=== PATIENT | female | born 1995 | race Hispanic/Latino ===

== ENCOUNTER 2017-12-18 12:30 | Emergency (ER) | payer MEDICAID ==
[2017-12-18 13:11] LABS: HCG,QUAL RESULT POSITIVE (NEGATIVE)
[2017-12-18 13:12] LABS: APPEARANCE,URINE Cloudy (CLEAR); BILIRUBIN,URINE Negative (NEGATIVE); COLOR,URINE Dark Yellow (YELLOW); GLUCOSE, URINE (UA) Negative (NEGATIVE); KETONES,URINE Negative (NEGATIVE); LEUKOCYTE ESTERASE ,URINE Trace (NEGATIVE); NITRATE,URINE Negative (NEGATIVE); OCCULT BLOOD,URINE Negative (NEGATIVE); PROTEIN,URINE Negative (NEGATIVE); UROBILINOGEN,URINE 0.2 mg/dL (0.2-1.0)
[2017-12-18] MEDS ORDERED: ONDANSETRON ODT 4 MG TAB ONE (13:13)
[2017-12-18 13:28] LABS: RBC,URINE 0-1 /HPF (0-1)
[2017-12-18 13:29] LABS: BACTERIA,URINE Few /HPF (None Seen); MUCUS,URINE Few LPF (None Seen); SQUAMOUS EPITHELIAL CELL,UR Moderate /LPF (0-2)
== END 2017-12-18 13:47 | disposition home or self-care (01) ==
LOC: EDH 12:30
DX: O26.891 Other specified pregnancy related conditions, first trimester (principal); O21.9 Vomiting of pregnancy, unspecified; Z3A.08 8 weeks gestation of pregnancy
CPT/HCPCS: 81001; 81025

== ENCOUNTER 2018-01-10 17:55 | Emergency (ER) | payer MEDICAID ==
[2018-01-10] MEDS ORDERED: DIPHENHYDRAMINE HCL 25 MG CAPSULE ONE (18:31)
[2018-01-10] MEDS ORDERED: FAMOTIDINE 20MG TAB 20 MG TAB ONE (18:32)
[2018-01-10] MEDS ORDERED: METHYLPREDNISOLONE SOD SUCC 125MG/2ML VIAL ONE (19:23)
== END 2018-01-10 19:56 | disposition home or self-care (01) ==
LOC: EDH 17:55
DX: O26.891 Other specified pregnancy related conditions, first trimester (principal); L50.9 Urticaria, unspecified; Z3A.12 12 weeks gestation of pregnancy
CPT/HCPCS: 96372; 99283; J2930; Q0163

== ENCOUNTER 2018-04-04 18:15 | Inpatient (IN) | payer MEDICAID ==
[~2018-04-04] VITALS: Ht 152.4 cm; Wt 73.9 kg
[2018-04-04 18:49] LABS: APPEARANCE,URINE Turbid (CLEAR); BILIRUBIN,URINE Negative (NEGATIVE); COLOR,URINE Yellow (YELLOW); GLUCOSE, URINE (UA) Negative (NEGATIVE); KETONES,URINE Negative (NEGATIVE); LEUKOCYTE ESTERASE ,URINE Trace (NEGATIVE); NITRATE,URINE Negative (NEGATIVE); OCCULT BLOOD,URINE Negative (NEGATIVE); PROTEIN,URINE Negative (NEGATIVE)
[2018-04-04 18:59] LABS: AMORPHOUS SEDIMENT,UR Moderate /LPF (None Seen); BACTERIA,URINE Few /HPF (None Seen); MUCUS,URINE Few LPF (None Seen); RBC,URINE None Seen /HPF (0-1); SQUAMOUS EPITHELIAL CELL,UR 0-2 /HPF (0-2); WBC,URINE 0-1 /HPF (0-1)
[2018-04-04 19:26] LABS: AMPHET/METH SCREEN,URINE NEGATIVE (NEGATIVE); BARBITURATE SCREEN, URINE NEGATIVE (NEGATIVE); BENZODIAZEPINES SCREEN,URINE NEGATIVE (NEGATIVE); CANNABINOID SCREEN,URINE NEGATIVE (NEGATIVE); COCAINE SCREEN,URINE NEGATIVE (NEGATIVE); OPIATE SCREEN,URINE NEGATIVE (NEGATIVE); PHENCYCLIDINE SCREEN,URINE NEGATIVE (NEGATIVE)
[2018-04-04] MEDS ORDERED: LACTATED RINGERS 1000ML 1,000 ML IV PRN (19:43)
[2018-04-04] MEDS: LACTATED RINGERS 1000ML 1,000 ML IV SCH ×2 (19:53→23:58)
[2018-04-04] MEDS ORDERED: PROMETHAZINE HCL 25 MG/ML 1ML AMPULE IM ONE (19:59)
[2018-04-04] MEDS ORDERED: MEPERIDINE-PF 50 MG/ML SYG ONE (20:00)
[2018-04-04] MEDS: TAMSULOSIN HCL 0.4 MG CAP.ER.24H PO SCH (20:44)
[2018-04-04] MEDS: PROMETHAZINE HCL 25 MG/ML 1ML AMPULE IM PRN (23:57)
[2018-04-04] MEDS: MEPERIDINE-PF 50 MG/ML SYG IVP PRN (23:58)
[2018-04-05] MEDS: MEPERIDINE-PF 50 MG/ML SYG IVP PRN ×3 (04:12→20:15)
[2018-04-05] MEDS: PROMETHAZINE HCL 25 MG/ML 1ML AMPULE IM PRN ×4 (04:13→20:15)
[2018-04-05] MEDS: LACTATED RINGERS 1000ML 1,000 ML IV SCH ×2 (06:11→12:45)
[2018-04-05] MEDS: TAMSULOSIN HCL 0.4 MG CAP.ER.24H PO SCH (08:58)
[2018-04-05 10:12] LABS: CREATININE 0.8 mg/dL (0.5-1.5); POTASSIUM 3.8 mmol/L (3.5-5.1)
[2018-04-05 10:19] LABS: ALBUMIN 2.5 g/dL (3.5-5.0); BILIRUBIN,TOTAL 0.4 mg/dL (0.2-1.0); TOTAL PROTEIN, SERUM 6.3 g/dL (6.0-8.3)
[2018-04-05 18:05] LABS: BASOPHILS % (AUTO) 0.4 % (0.0-5.0); EOSINOPHILS % (AUTO) 0.2 % (0.0-8.0); HEMATOCRIT 25.5 % (36-48); MEAN CORPUSCULAR HEMOGLOBIN 31.8 pg (27.0-33.0); MEAN CORPUSCULAR HGB CONC 35.4 g/dL (32.0-36.0); MEAN CORPUSCULAR VOLUME 89.9 fL (80-100); MONOCYTES % (AUTO) 7.9 % (3.0-13.0); NEUTROPHILS % (AUTO) 73.5 % (40.0-77.0); PLATELET COUNT (AUTO) 230 K/uL (130-400); RED BLOOD CELL COUNT(AUTO) 2.83 MIL/uL (4.00-5.50); RED CELL DISTRIBUTION WIDTH 13.6 % (11.0-15.5); WHITE BLOOD COUNT (AUTO) 9.7 K/uL (4.8-10.8)
[2018-04-05] MEDS ORDERED: AMPICILLIN 2 GM IV ONE (21:27)
[2018-04-05] MEDS ORDERED: [UNRECOGNIZED DRUG - OTHER] IV ONE (21:27)
[2018-04-06] MEDS: TAMSULOSIN HCL 0.4 MG CAP.ER.24H PO SCH (09:05)
[2018-04-06] MEDS: LACTATED RINGERS 1000ML 1,000 ML IV SCH ×3 (09:05→21:31)
[2018-04-06 09:40] VITALS: BP 109/60
[2018-04-06] MEDS: PROMETHAZINE HCL 25 MG/ML 1ML AMPULE IM PRN (10:08)
[2018-04-06] MEDS: MEPERIDINE-PF 50 MG/ML SYG IVP PRN (10:10)
[2018-04-06 11:29] VITALS: BP 99/65
[2018-04-06 15:27] VITALS: BP 104/53
[2018-04-06] MEDS: ACETAMINOPHEN-CODEINE 300/30MG TAB PO PRN ×2 (15:31→21:30)
[2018-04-06 19:28] VITALS: BP 96/57
[2018-04-06 23:13] VITALS: BP 92/52
[2018-04-07 03:44] VITALS: BP 89/49
[2018-04-07] MEDS: ACETAMINOPHEN-CODEINE 300/30MG TAB PO PRN (05:14)
[2018-04-07 07:24] VITALS: BP 96/48
[2018-04-07] MEDS: LACTATED RINGERS 1000ML 1,000 ML IV SCH (08:12)
[2018-04-07] MEDS: TAMSULOSIN HCL 0.4 MG CAP.ER.24H PO SCH (08:38)
[2018-04-07 11:30] VITALS: BP 106/65
[2018-04-07 15:54] VITALS: BP 107/54
== END 2018-04-07 17:45 | disposition home or self-care (01) | DRG 566 ==
LOC: EDH 18:15 → LDH 18:16 → OBSVTOIN 04-05 12:17 → WSH 04-06 09:40
DX: O99.89 Other specified diseases and conditions complicating pregnancy, childbirth and the puerperium (principal); N13.2 Hydronephrosis with renal and ureteral calculous obstruction; Z3A.24 24 weeks gestation of pregnancy
CPT/HCPCS: 36415; 76770; 80053; 80305; 81001; 85025; 96360; 96361; G0378; J0290; J2175; J2550; J7120

== ENCOUNTER 2018-08-07 22:46 | Emergency (ER) | payer MEDICAID ==
[~2018-08-07 22:46] MED LIST: FERR-82 PO; PREN1TAB89 PO
[2018-08-07 23:10] LABS: HCG,QUAL RESULT NEGATIVE (NEGATIVE)
[2018-08-07 23:13] LABS: AMPHET/METH SCREEN,URINE NEGATIVE (NEGATIVE); BARBITURATE SCREEN, URINE NEGATIVE (NEGATIVE); BENZODIAZEPINES SCREEN,URINE NEGATIVE (NEGATIVE); CANNABINOID SCREEN,URINE NEGATIVE (NEGATIVE); COCAINE SCREEN,URINE NEGATIVE (NEGATIVE); OPIATE SCREEN,URINE POSITIVE (NEGATIVE); PHENCYCLIDINE SCREEN,URINE NEGATIVE (NEGATIVE)
[2018-08-07] MEDS ORDERED: METOCLOPRAMIDE 10 MG/2 ML VIAL ONE (23:20)
[2018-08-07] MEDS ORDERED: DiphenhydrAMINE HCL 50 MG/ML VIAL ONE (23:21)
[2018-08-07] MEDS ORDERED: KETOROLAC TROMETHAMINE 30MG/ML ONE (23:21)
[2018-08-07] MEDS ORDERED: ONDANSETRON HCL 4 MG/2 ML VIAL ONE (23:21)
[2018-08-07] MEDS ORDERED: SODIUM CHLORIDE 0.9% 1000ML 1,000 ML IV ONE (23:21)
[2018-08-07 23:38] LABS: BASOPHILS % (AUTO) 1.3 % (0.0-5.0); HEMATOCRIT 37.3 % (36-48); MEAN CORPUSCULAR HEMOGLOBIN 29.5 pg (27.0-33.0); MEAN CORPUSCULAR HGB CONC 33.6 g/dL (32.0-36.0); MEAN CORPUSCULAR VOLUME 88.1 fL (80-100); MONOCYTES % (AUTO) 8.3 % (3.0-13.0); NEUTROPHILS % (AUTO) 46.4 % (40.0-77.0); PLATELET COUNT (AUTO) 399 K/uL (130-400); RED BLOOD CELL COUNT(AUTO) 4.24 MIL/uL (4.00-5.50); RED CELL DISTRIBUTION WIDTH 14.2 % (11.0-15.5); WHITE BLOOD COUNT (AUTO) 8.4 K/uL (4.8-10.8)
[2018-08-07 23:42] LABS: POTASSIUM 3.6 mmol/L (3.5-5.1)
[2018-08-07 23:46] LABS: ALBUMIN 3.4 g/dL (3.5-5.0); BILIRUBIN,TOTAL 0.2 mg/dL (0.2-1.0)
[2018-08-08] MEDS ORDERED: TAMSULOSIN HCL 0.4 MG CAP.ER.24H ONE (01:36)
== END 2018-08-08 01:48 | disposition home or self-care (01) ==
LOC: EDH 22:46
DX: N13.2 Hydronephrosis with renal and ureteral calculous obstruction (principal)
CPT/HCPCS: 36415; 74176; 80053; 80305; 81025; 83690; 85025; 96361; 96374; 96375; 99285; J1200; J1885; J2405; J2765; J7030

== ENCOUNTER 2018-08-15 09:57 | Inpatient (IN) | payer MEDICAID, OTHER ==
[~2018-08-15] VITALS: Ht 152.4 cm; Wt 77.6 kg
[2018-08-15] MEDS ORDERED: KETOROLAC TROMETHAMINE 30MG/ML ONE (10:23)
[2018-08-15] MEDS ORDERED: ONDANSETRON HCL 4 MG/2 ML VIAL ONE (10:23)
[2018-08-15] MEDS ORDERED: MORPHINE SULFATE 4 MG/1ML SYG ONE ×2 (10:23→11:41)
[2018-08-15] MEDS ORDERED: SODIUM CHLORIDE 0.9% 1000ML 1,000 ML IV ONE ×2 (10:23→12:09)
[2018-08-15 10:55] LABS: BASOPHILS % (AUTO) 0.5 % (0.0-5.0); EOSINOPHILS % (AUTO) 1.1 % (0.0-8.0); HEMATOCRIT 38.6 % (36-48); MEAN CORPUSCULAR HEMOGLOBIN 29.5 pg (27.0-33.0); MEAN CORPUSCULAR HGB CONC 33.4 g/dL (32.0-36.0); MEAN CORPUSCULAR VOLUME 88.4 fL (80-100); MONOCYTES % (AUTO) 8.3 % (3.0-13.0); NEUTROPHILS % (AUTO) 55.1 % (40.0-77.0); PLATELET COUNT (AUTO) 289 K/uL (130-400); RED BLOOD CELL COUNT(AUTO) 4.36 MIL/uL (4.00-5.50); RED CELL DISTRIBUTION WIDTH 14.3 % (11.0-15.5); WHITE BLOOD COUNT (AUTO) 6.4 K/uL (4.8-10.8)
[2018-08-15 11:08] LABS: CREATININE 0.9 mg/dL (0.5-1.5); POTASSIUM 3.2 mmol/L (3.5-5.1)
[2018-08-15 11:13] LABS: ALBUMIN 3.8 g/dL (3.5-5.0); BILIRUBIN,TOTAL 0.5 mg/dL (0.2-1.0); TOTAL PROTEIN, SERUM 8.3 g/dL (6.0-8.3)
[2018-08-15 11:29] LABS: APPEARANCE,URINE Clear (CLEAR); BILIRUBIN,URINE Negative (NEGATIVE); COLOR,URINE Yellow (YELLOW); GLUCOSE, URINE (UA) Negative (NEGATIVE); KETONES,URINE 15 mg/dL (NEGATIVE); LEUKOCYTE ESTERASE ,URINE Small (NEGATIVE); NITRATE,URINE Negative (NEGATIVE); OCCULT BLOOD,URINE Negative (NEGATIVE); PH,URINE >=9.0 (5.0-8.0); PROTEIN,URINE Negative (NEGATIVE)
[2018-08-15 11:48] LABS: BACTERIA,URINE Rare /HPF (None Seen); MUCUS,URINE Few LPF (None Seen); RBC,URINE 0-1 /HPF (0-1); SQUAMOUS EPITHELIAL CELL,UR Few /HPF (0-2)
[2018-08-15] MEDS ORDERED: TAMSULOSIN HCL 0.4 MG CAP.ER.24H ONE (13:32)
[2018-08-15] MEDS ORDERED: ONDANSETRON HCL 4 MG/2 ML VIAL IVP PRN (13:45)
[2018-08-15] MEDS ORDERED: POTASSIUM CHLORIDE 10% ELIXIR 20 MEQ/15 ML UDCUP PO PRN (14:00)
[2018-08-15 15:16] VITALS: BP 110/63
[2018-08-15] MEDS: POTASSIUM CHLORIDE 20 MEQ ERTAB PO PRN ×2 (15:42→18:34)
[2018-08-15] MEDS: MORPHINE SULFATE 2 MG/ML 1ML SYG IV PRN ×2 (17:15→17:16)
[2018-08-15 19:05] VITALS: BP 100/55
[2018-08-15] MEDS: DEXTROSE 5%-LACTATED RINGERS 1,000 ML IV SCH (20:58)
[2018-08-15] MEDS ORDERED: KETOROLAC TROMETHAMINE 30MG/ML IV PRN (21:00)
[2018-08-15 23:05] VITALS: BP 98/54
[2018-08-16 03:15] VITALS: BP 96/54
[2018-08-16] MEDS: DEXTROSE 5%-LACTATED RINGERS 1,000 ML IV SCH (04:23)
[2018-08-16 07:59] VITALS: BP 102/60
[2018-08-16] MEDS ORDERED: TAMSULOSIN HCL 0.4 MG CAP.ER.24H PO SCH (09:00)
[2018-08-16] MEDS ORDERED: PANTOPRAZOLE SODIUM 40 MG TABLET.DR PO SCH (09:00)
[2018-08-16 10:23] LABS: HEMATOCRIT 30.7 % (36-48); MEAN CORPUSCULAR HEMOGLOBIN 29.4 pg (27.0-33.0); MEAN CORPUSCULAR HGB CONC 33.3 g/dL (32.0-36.0); MEAN CORPUSCULAR VOLUME 88.2 fL (80-100); NUCLEATED RED BLOOD CELLS 0.1 % (0.0-0.19); PLATELET COUNT (AUTO) 159 K/uL (130-400); RED BLOOD CELL COUNT(AUTO) 3.48 MIL/uL (4.00-5.50); WHITE BLOOD COUNT (AUTO) 4.1 K/uL (4.8-10.8)
[2018-08-16 10:37] LABS: POTASSIUM 4.1 mmol/L (3.5-5.1)
[2018-08-16 11:25] VITALS: BP 109/67
== END 2018-08-16 17:01 | disposition home or self-care (01) | DRG 465 ==
LOC: EDH 09:57 → EDHIP 09:58 → OBSVTOIN 09:58 → 4AH 14:18
PROVIDERS: ADMIT Internal Medicine; ATTEND Internal Medicine
DX: N13.2 Hydronephrosis with renal and ureteral calculous obstruction (principal); E87.6 Hypokalemia; Z87.442 Personal history of urinary calculi; Z82.5 Family history of asthma and other chronic lower respiratory diseases; Z80.9 Family history of malignant neoplasm, unspecified; Z84.89 Family history of other specified conditions
CPT/HCPCS: 36415; 74176; 80048; 80053; 81001; 81025; 85025; 85027; J1885; J2270; J2405; J3490; J7030

== ENCOUNTER → 2018-09-04 | Outpatient (CLI) | payer MEDICAID | END | disposition home or self-care (01) | LOC: RAH 13:30 | PROVIDERS: ATTEND Urology | DX: N20.1 Calculus of ureter (principal) | CPT/HCPCS: 76770 ==

== ENCOUNTER → 2018-09-14 | Outpatient (CLI) | payer MEDICAID ==
[~2018-09-14] MED LIST changes: +TUMS CHEW
== END | disposition home or self-care (01) ==
LOC: RAH 13:07
PROVIDERS: ATTEND Urology
DX: N20.0 Calculus of kidney (principal)
CPT/HCPCS: 74018

== ENCOUNTER 2018-09-23 08:35 | Day surgery (SDC) | payer MEDICAID ==
[2018-09-21 11:08] LABS: BASOPHILS % (AUTO) 0.7 % (0.0-5.0); EOSINOPHILS % (AUTO) 0.9 % (0.0-8.0); HEMATOCRIT 35.2 % (36-48); LYMPHOCYTES % (AUTO) 32.4 % (21.0-51.0); MEAN CORPUSCULAR HEMOGLOBIN 29.5 pg (27.0-33.0); MEAN CORPUSCULAR HGB CONC 33.8 g/dL (32.0-36.0); MEAN CORPUSCULAR VOLUME 87.3 fL (80-100); MONOCYTES % (AUTO) 8.6 % (3.0-13.0); NEUTROPHILS % (AUTO) 57.4 % (40.0-77.0); NUCLEATED RED BLOOD CELLS 0.1 % (0.0-0.19); PLATELET COUNT (AUTO) 287 K/uL (130-400); RED BLOOD CELL COUNT(AUTO) 4.03 MIL/uL (4.00-5.50); WHITE BLOOD COUNT (AUTO) 5.2 K/uL (4.8-10.8)
[2018-09-21 11:38] VITALS: BP 107/48
[2018-09-23] VITALS (14 sets, daily range): BP systolic 101–119; BP diastolic 49–68
[~2018-09-23] VITALS: Ht 157.5 cm; Wt 62.6 kg
[~2018-09-23 08:35] MED LIST changes: +CEFTRIAXONE SODIUM 1 GM IVP SCH; -FERR-82 PO; -PREN1TAB89 PO
[2018-09-23] MEDS ORDERED: LACTATED RINGERS 1000ML 1,000 ML IV ONE (09:08)
[2018-09-23] MEDS ORDERED: LIDOCAINE PF 2% 5ML ABBOJECT ONE (09:40)
[2018-09-23] MEDS ORDERED: PROPOFOL 10 MG/ML 20ML VIAL IV ONE (09:40)
[2018-09-23] MEDS ORDERED: FENTANYL CITRATE PF 50 MCG/1 ML 2ML VIAL ONE ×2 (09:41→10:15)
[2018-09-23] MEDS ORDERED: EPHEDRINE SULFATE 50 MG/ML AMPULE ONE (09:58)
[2018-09-23] MEDS ORDERED: ONDANSETRON HCL 4 MG/2 ML VIAL ONE (10:32)
== END 2018-09-23 12:30 | disposition home or self-care (01) ==
LOC: DAH 08:35
PROVIDERS: ATTEND Urology
DX: N20.0 Calculus of kidney (principal); D64.9 Anemia, unspecified; Z98.890 Other specified postprocedural states
CPT/HCPCS: 36415; 50590; 84702; 85025; A4218; A4510; A4600; J0696; J2001; J2405; J2704; J3010 ×2; J3490; J7120

== ENCOUNTER 2019-09-01 16:16 | Emergency (ER) | payer MEDICAID ==
[~2019-09-01 16:16] MED LIST changes: -CEFTRIAXONE SODIUM 1 GM IVP SCH
[2019-09-01 18:14] LABS: APPEARANCE,URINE Turbid (CLEAR); BILIRUBIN,URINE Negative (NEGATIVE); COLOR,URINE Yellow (YELLOW); GLUCOSE, URINE (UA) Negative (NEGATIVE); KETONES,URINE Negative (NEGATIVE); LEUKOCYTE ESTERASE ,URINE Negative (NEGATIVE); NITRATE,URINE Negative (NEGATIVE); OCCULT BLOOD,URINE Negative (NEGATIVE); PH,URINE >=9.0 (5.0-8.0); PROTEIN,URINE Negative (NEGATIVE)
[2019-09-01 18:16] LABS: HCG,QUAL RESULT POSITIVE (NEGATIVE)
[2019-09-01 18:36] LABS: AMORPHOUS SEDIMENT,UR Moderate /LPF (None Seen); BACTERIA,URINE Few /HPF (None Seen); MUCUS,URINE Few LPF (None Seen); RBC,URINE 0-1 /HPF (0-1); SQUAMOUS EPITHELIAL CELL,UR 0-2 /HPF (0-2)
== END 2019-09-01 19:13 | disposition home or self-care (01) ==
LOC: EDH 16:16
DX: O26.891 Other specified pregnancy related conditions, first trimester (principal); R10.2 Pelvic and perineal pain; F32.9 Major depressive disorder, single episode, unspecified; Z3A.01 Less than 8 weeks gestation of pregnancy
CPT/HCPCS: 36415; 76817; 81001; 81025; 84702; 86900; 86901

== ENCOUNTER 2019-11-12 12:02 | Emergency (ER) | payer MEDICAID ==
[2019-11-12] MEDS ORDERED: SODIUM CHLORIDE 0.9% 1000ML 1,000 ML IV ONE (12:19)
[2019-11-12] MEDS ORDERED: ONDANSETRON HCL 4 MG/2 ML VIAL ONE ×2 (12:19→15:27)
[2019-11-12 12:23] LABS: BASOPHILS % (AUTO) 0.1 % (0.0-5.0); EOSINOPHILS % (AUTO) 1.7 % (0.0-8.0); HEMATOCRIT 30.5 % (36-48); LYMPHOCYTES % (AUTO) 8.6 % (21.0-51.0); MEAN CORPUSCULAR HEMOGLOBIN 29.8 pg (27.0-33.0); MEAN CORPUSCULAR HGB CONC 33.8 g/dL (32.0-36.0); MEAN CORPUSCULAR VOLUME 88.2 fL (79-99); MONOCYTES % (AUTO) 7.6 % (3.0-13.0); NEUTROPHILS % (AUTO) 81.7 % (40.0-77.0); PLATELET COUNT (AUTO) 231 K/uL (130-400); RED BLOOD CELL COUNT(AUTO) 3.46 MIL/uL (4.00-5.50); RED CELL DISTRIBUTION WIDTH 13.6 % (11.0-15.5); WHITE BLOOD COUNT (AUTO) 9.5 K/uL (4.8-10.8)
[2019-11-12 12:35] LABS: CREATININE 0.6 mg/dL (0.5-1.5); POTASSIUM 3.3 mmol/L (3.5-5.1)
[2019-11-12 12:40] LABS: ALBUMIN 2.8 g/dL (3.5-5.0); BILIRUBIN,TOTAL 0.4 mg/dL (0.2-1.0); MAGNESIUM 2.1 mg/dL (1.80-2.40); TOTAL PROTEIN, SERUM 7.5 g/dL (6.0-8.3)
[2019-11-12] MEDS ORDERED: POTASSIUM CHLORIDE 20 MEQ ERTAB PO ONE (12:55)
[2019-11-12] MEDS ORDERED: ACETAMINOPHEN 325 MG TAB ONE (13:30)
[2019-11-12 14:23] LABS: APPEARANCE,URINE Cloudy (CLEAR); BILIRUBIN,URINE Negative (NEGATIVE); COLOR,URINE Yellow (YELLOW); GLUCOSE, URINE (UA) Negative (NEGATIVE); KETONES,URINE 40 mg/dL (NEGATIVE); LEUKOCYTE ESTERASE ,URINE Moderate (NEGATIVE); NITRATE,URINE Negative (NEGATIVE); OCCULT BLOOD,URINE Negative (NEGATIVE); PROTEIN,URINE Trace mg/dL (NEGATIVE)
[2019-11-12 14:31] LABS: BACTERIA,URINE Few /HPF (None Seen); RBC,URINE None Seen /HPF (0-1)
[2019-11-12] MEDS ORDERED: CEFTRIAXONE SODIUM 1 GM ONE (14:41)
[2019-11-12] MEDS ORDERED: SODIUM CHLORIDE 0.9% 50 ML IV ONE (14:41)
== END 2019-11-12 16:15 | disposition home or self-care (01) ==
LOC: EDH 12:02
DX: O26.892 Other specified pregnancy related conditions, second trimester (principal); O21.0 Mild hyperemesis gravidarum; E87.6 Hypokalemia; R50.9 Fever, unspecified; N39.0 Urinary tract infection, site not specified; F32.9 Major depressive disorder, single episode, unspecified; Z79.899 Other long term (current) drug therapy; Z3A.16 16 weeks gestation of pregnancy
CPT/HCPCS: 36415; 80053; 81001; 83735; 85025; 87088; 96361; 96374; 96375; 99284; J0696; J2405 ×2; J7030

== ENCOUNTER 2020-01-20 13:47 | Observation (INO) | payer MEDICAID ==
[2020-01-20] MEDS ORDERED: ACETAMINOPHEN 325 MG TAB ONE (14:47)
[2020-01-20] MEDS ORDERED: ONDANSETRON ODT 4 MG TAB ONE (14:47)
[2020-01-20 15:02] LABS: RAPID GROUP A STREP NEGATIVE (NEGATIVE)
[2020-01-20] MEDS ORDERED: LACTATED RINGERS 1000ML 1,000 ML IV SCH (16:15)
[2020-01-20 16:17] LABS: BILIRUBIN,URINE Negative (NEGATIVE); COLOR,URINE Yellow (YELLOW); GLUCOSE, URINE (UA) Negative (NEGATIVE); KETONES,URINE 40 mg/dL (NEGATIVE); LEUKOCYTE ESTERASE ,URINE Moderate (NEGATIVE); NITRATE,URINE Negative (NEGATIVE); OCCULT BLOOD,URINE Negative (NEGATIVE); PH,URINE 7.5 (5.0-8.0); PROTEIN,URINE Trace mg/dL (NEGATIVE)
[2020-01-20 16:17] LABS: EOSINOPHILS % (AUTO) 0.7 % (0.0-8.0); HEMATOCRIT 28.8 % (36-48); LYMPHOCYTES % (AUTO) 7.7 % (21.0-51.0); MEAN CORPUSCULAR HEMOGLOBIN 29.8 pg (27.0-33.0); MEAN CORPUSCULAR HGB CONC 32.6 g/dL (32.0-36.0); MEAN CORPUSCULAR VOLUME 91.4 fL (79-99); MONOCYTES % (AUTO) 3.7 % (3.0-13.0); NEUTROPHILS % (AUTO) 87.3 % (40.0-77.0); PLATELET COUNT (AUTO) 251 K/uL (130-400); RED BLOOD CELL COUNT(AUTO) 3.15 MIL/uL (4.00-5.50); RED CELL DISTRIBUTION WIDTH 13.5 % (11.0-15.5); WHITE BLOOD COUNT (AUTO) 8.2 K/uL (4.8-10.8)
[2020-01-20 16:46] LABS: APPEARANCE,URINE HAZY (CLEAR); RBC,URINE None Seen /HPF (0-1)
[2020-01-20 16:47] LABS: BACTERIA,URINE Few /HPF (None Seen)
[2020-01-20 17:09] LABS: POTASSIUM 3.4 mmol/L (3.5-5.1)
== END 2020-01-20 17:28 | disposition home or self-care (01) ==
LOC: EDH 13:47 → LDH 13:48
PROVIDERS: ADMIT Specialist; ATTEND Specialist
DX: O21.2 Late vomiting of pregnancy (principal); O26.892 Other specified pregnancy related conditions, second trimester; R50.9 Fever, unspecified; R10.9 Unspecified abdominal pain; O99.342 Other mental disorders complicating pregnancy, second trimester; F32.9 Major depressive disorder, single episode, unspecified; Z87.442 Personal history of urinary calculi; Z3A.26 26 weeks gestation of pregnancy
CPT/HCPCS: 36415; 80051; 81001; 85025; 87804 ×2; 87880; 96360; 99284; G0378 ×4; J7120

== ENCOUNTER 2020-02-20 09:36 | Observation (INO) | payer BC, MEDICAID ==
[~2020-02-20] VITALS: Ht 152.4 cm; Wt 80.3 kg
== END 2020-02-20 11:40 | disposition home or self-care (01) ==
LOC: EDH 09:36 → LDH 09:48
PROVIDERS: ADMIT Specialist; ATTEND Specialist
DX: O26.893 Other specified pregnancy related conditions, third trimester (principal); Z3A.30 30 weeks gestation of pregnancy
CPT/HCPCS: 99284; G0378 ×2

== ENCOUNTER 2020-02-25 06:18 | Observation (INO) | payer BC, MEDICAID ==
[~2020-02-25] VITALS: Ht 152.4 cm; Wt 80.7 kg
[2020-02-25] MEDS ORDERED: ONDANSETRON HCL 4 MG/2 ML VIAL ONE (06:45)
[2020-02-25] MEDS ORDERED: MORPHINE SULFATE 4 MG/1ML SYG ONE ×2 (06:45→07:20)
[2020-02-25 06:47] LABS: BASOPHILS % (AUTO) 0.3 % (0.0-5.0); EOSINOPHILS % (AUTO) 0.6 % (0.0-8.0); HEMATOCRIT 28.3 % (36-48); LYMPHOCYTES % (AUTO) 22.3 % (21.0-51.0); MEAN CORPUSCULAR HEMOGLOBIN 28.6 pg (27.0-33.0); MEAN CORPUSCULAR HGB CONC 32.5 g/dL (32.0-36.0); MEAN CORPUSCULAR VOLUME 87.9 fL (79-99); MONOCYTES % (AUTO) 6.9 % (3.0-13.0); NEUTROPHILS % (AUTO) 68.5 % (40.0-77.0); PLATELET COUNT (AUTO) 264 K/uL (130-400); RED BLOOD CELL COUNT(AUTO) 3.22 MIL/uL (4.00-5.50); RED CELL DISTRIBUTION WIDTH 13.2 % (11.0-15.5); WHITE BLOOD COUNT (AUTO) 8.8 K/uL (4.8-10.8)
[2020-02-25 06:50] LABS: APPEARANCE,URINE CLOUDY (CLEAR); BILIRUBIN,URINE NEGATIVE (NEGATIVE); COLOR,URINE YELLOW (YELLOW); GLUCOSE, URINE (UA) NEGATIVE (NEGATIVE); KETONES,URINE NEGATIVE (NEGATIVE); LEUKOCYTE ESTERASE ,URINE LARGE (NEGATIVE); NITRATE,URINE NEGATIVE (NEGATIVE); OCCULT BLOOD,URINE LARGE (NEGATIVE); PROTEIN,URINE 30 mg/dL (NEGATIVE); UROBILINOGEN,URINE 0.2 mg/dL (0.2-1.0)
[2020-02-25 07:09] LABS: CREATININE 0.6 mg/dL (0.5-1.5); POTASSIUM 3.6 mmol/L (3.5-5.1)
[2020-02-25 07:15] LABS: ALBUMIN 2.6 g/dL (3.5-5.0); BILIRUBIN,TOTAL 0.2 mg/dL (0.2-1.0)
[2020-02-25 07:22] LABS: BACTERIA,URINE Moderate /HPF (None Seen); SQUAMOUS EPITHELIAL CELL,UR 50-100 /HPF (0-2)
[2020-02-25] MEDS ORDERED: MEPERIDINE-PF 50 MG/ML SYG ONE (08:51)
[2020-02-25] MEDS ORDERED: LACTATED RINGERS 1000ML 1,000 ML IV SCH (09:00)
[2020-02-25] MEDS ORDERED: LACTATED RINGERS 1000ML IV SCH (09:00)
[2020-02-25] MEDS ORDERED: MEPERIDINE-PF 50 MG/ML SYG IM PRN (09:00)
[2020-02-25] MEDS: LACTATED RINGERS 1000ML 1,000 ML IV SCH ×3 (09:50→19:58)
[2020-02-25] MEDS ORDERED: MEPERIDINE-PF 75 MG/ML SYG IM PRN (10:00)
[2020-02-25 10:30] VITALS: BP 115/74
--- NOTE | 2020-02-25 10:30 | NUR ---
PATIENT IS C/O LEFT FLANK PAIN. EXPLAINED TO PATIENT PAIN MEDICATION IS ORDERED Q3H. HOT COMPRESS GIVEN AND WRAPPED IN TOWEL FOR COMFORT. ADVISED PATIENT TO CALL WITH ANY NEEDS OR CONCERNS. PATIENT VOICED UNDERSTANDING.
[2020-02-25] MEDS ORDERED: PNV1TABL17 PO ×2 (10:37)
[2020-02-25] MEDS: CEFAZOLIN SODIUM 1 GM VIAL IVP SCH ×2 (11:00→18:53)
[2020-02-25 11:22] VITALS: BP 119/65
[2020-02-25] MEDS ORDERED: MEPERIDINE-PF 100 MG/ML SYG ONE ×3 (11:41→19:34)
[2020-02-25] MEDS: PROMETHAZINE HCL 25 MG/ML 1ML AMPULE IM PRN ×3 (11:51→19:39)
--- NOTE | 2020-02-25 13:00 | NUR ---
PATIENT STATES PAIN HAS IMPROVED AND WILL TRY TO REST AT THIS TIME. PILLOW GIVEN AND PLACED UNDER LEFT SIDE FOR COMFORT. CALL LIGHT LEFT IN REACH.
[2020-02-25 15:33] VITALS: BP 115/57
[2020-02-25 19:20] VITALS: BP 110/59
[2020-02-25] MEDS ORDERED: TAMSULOSIN HCL 0.4 MG CAP.ER.24H PO SCH (19:50)
[2020-02-26 00:26] VITALS: BP 96/51
[2020-02-26] MEDS: LACTATED RINGERS 1000ML 1,000 ML IV SCH ×2 (00:46→08:37)
[2020-02-26] MEDS: CEFAZOLIN SODIUM 1 GM VIAL IVP SCH ×2 (02:31→10:18)
[2020-02-26 03:54] VITALS: BP 90/57
[2020-02-26 06:08] LABS: BASOPHILS % (AUTO) 0.1 % (0.0-5.0); EOSINOPHILS % (AUTO) 0.3 % (0.0-8.0); HEMATOCRIT 24.6 % (36-48); LYMPHOCYTES % (AUTO) 20.9 % (21.0-51.0); MEAN CORPUSCULAR HEMOGLOBIN 28.6 pg (27.0-33.0); MEAN CORPUSCULAR HGB CONC 31.3 g/dL (32.0-36.0); MEAN CORPUSCULAR VOLUME 91.4 fL (79-99); MONOCYTES % (AUTO) 7.3 % (3.0-13.0); NEUTROPHILS % (AUTO) 70.4 % (40.0-77.0); PLATELET COUNT (AUTO) 220 K/uL (130-400); RED BLOOD CELL COUNT(AUTO) 2.69 MIL/uL (4.00-5.50); RED CELL DISTRIBUTION WIDTH 13.3 % (11.0-15.5); WHITE BLOOD COUNT (AUTO) 7.2 K/uL (4.8-10.8)
[2020-02-26 06:34] LABS: ALBUMIN 2.1 g/dL (3.5-5.0); BILIRUBIN,TOTAL 0.3 mg/dL (0.2-1.0); CREATININE 0.5 mg/dL (0.5-1.5); POTASSIUM 3.2 mmol/L (3.5-5.1); TOTAL PROTEIN, SERUM 5.7 g/dL (6.0-8.3)
[2020-02-26 07:50] VITALS: BP 94/36
--- NOTE | 2020-02-26 08:30 | NUR ---
ASSESSMENT: RECEIVED RESTING IN BED, EXPLAINED POC AND UNDERSTANDING VERBALIZED, CALL MCMULLEN AT HER SIDE. CONT TO STRAIN ALL URINE.
--- NOTE | 2020-02-26 08:52 | NUR ---
NST: NST IN PROGRESS, FHT'S 145 WITH LTV PRESENT.
--- NOTE | 2020-02-26 09:08 | NUR ---
ASSESSMENT: DR Patrick LOYA REVIEWED NST, LABS, DISCUSSED POC WITH PT AND UNDERSTANDING VERBALIZED,
[2020-02-26] MEDS ORDERED: ACETAMINOPHEN-CODEINE 300/30MG TAB PO PRN (09:15)
--- NOTE | 2020-02-26 09:20 | NUR ---
NST: NST REACTIVE. MONITOR OFF. UP TO BR VOIDED LG AMTS CL YELLOW URINE. STRAINED.
[2020-02-26] MEDS ORDERED: TAMSULOSIN HCL 0.4 MG CAP.ER.24H ONE ×2 (10:00→10:32)
[2020-02-26] MEDS: ACETAMINOPHEN-CODEINE 300/30MG TAB PO PRN ×2 (10:19→16:14)
[2020-02-26] MEDS ORDERED: TAMSULOSIN HCL 0.4 MG CAP.ER.24H PO SCH ×2 (10:30→21:00)
[2020-02-26 11:54] VITALS: BP 82/34
[2020-02-26 16:00] VITALS: BP 107/53
--- NOTE | 2020-02-26 16:17 | NUR ---
LEFT FLANK PAIN: RESTING IN BED, MEDICATED WITH T #3 FOR FLANK PAIN. STATES PAIN COMES AND GOES. CONT TO STRAIN URINE AND NO STONE.
--- NOTE | 2020-02-26 17:23 | NUR ---
DISCHARGE: PT STATES FEELS BETTER AND WANTS TO GO HOME. DR LOYA CALLED AND REPORT GIVEN ON PT STATUS AND REQUESTING TO GO HOME. ORDERS RECEIVED.
--- NOTE | 2020-02-26 18:11 | NUR ---
DISCHARGE: DISCHARGE INSTRUCTIONS GIVEN TO PT ON SELF CARE AT 31 WEEKS WITH KIDNEY STONES, TO CONTINUE TO STRAIN ALL URINE AND SAVE ANY STONES AND TAKE TO DR SMALL ON FRIDAY. INSTRUCTED ON S&S OF PTL, COUNT KICKS BID AND REPORT ANY PROBLEMS, DECREASED MOVEMENT TO DR SMALL. CALL OFFICE FRIDAY AND MAKE FOLLOW UP APPT. REVIEWED RX'S AND UNDERSTANDING VERBALIZED, COPIES OF ALL INSTRUCTIONS GIVEN TO PT.
--- NOTE | 2020-02-26 18:40 | NUR ---
DISCHARGE: DISCHARGED HOME TO PRIVATE CAR IN STABLE CONDITION.
== END 2020-02-26 18:40 | disposition home or self-care (01) ==
LOC: EDH 06:18 → LDH 07:51 → WSH 10:30
PROVIDERS: ADMIT Specialist; ATTEND Specialist
DX: O26.833 Pregnancy related renal disease, third trimester (principal); O99.343 Other mental disorders complicating pregnancy, third trimester; N28.89 Other specified disorders of kidney and ureter; N20.0 Calculus of kidney; F32.9 Major depressive disorder, single episode, unspecified; Z3A.31 31 weeks gestation of pregnancy
CPT/HCPCS: 36415 ×2; 76705; 80053 ×2; 81001; 85025 ×2; 87088; 96372; 96374; 96376 ×2; 99284; G0378 ×18; J0690 ×4; J2175 ×4; J2270 ×2; J2405; J2550 ×3; J7120 ×2; 96360

== ENCOUNTER 2020-04-01 12:10 | Observation (INO) | payer BC, MEDICAID ==
[~2020-04-01 12:10] MED LIST changes: +PNV1TABL17 PO
[2020-04-01] MEDS ORDERED: ACETAMINOPHEN 325 MG TAB ONE (14:50)
[2020-04-01] MEDS ORDERED: PROCHLORPERAZINE EDISYLATE 10 MG/2 ML VIAL ONE (14:50)
[2020-04-01 16:21] LABS: APPEARANCE,URINE Cloudy (CLEAR); BILIRUBIN,URINE Negative (NEGATIVE); COLOR,URINE Yellow (YELLOW); GLUCOSE, URINE (UA) Negative (NEGATIVE); KETONES,URINE 40 mg/dL (NEGATIVE); LEUKOCYTE ESTERASE ,URINE Large (NEGATIVE); NITRATE,URINE Negative (NEGATIVE); OCCULT BLOOD,URINE Nonhemolyzed Trace (NEGATIVE); PROTEIN,URINE Negative (NEGATIVE)
[2020-04-01 16:50] LABS: BACTERIA,URINE Moderate /HPF (None Seen); MUCUS,URINE Moderate LPF (None Seen); SQUAMOUS EPITHELIAL CELL,UR Moderate /HPF (0-2)
[2020-04-01] MEDS ORDERED: CEFTRIAXONE SODIUM 1 GM IVP SCH (17:15)
[2020-04-01] MEDS ORDERED: LACTATED RINGERS 1000ML IV SCH (17:15)
== END 2020-04-01 18:45 | disposition home or self-care (01) ==
LOC: EDH 12:10 → LDH 12:11
PROVIDERS: ADMIT Specialist; ATTEND Specialist
DX: O26.893 Other specified pregnancy related conditions, third trimester (principal); G43.109 Migraine with aura, not intractable, without status migrainosus; R53.1 Weakness; H54.62 Unqualified visual loss, left eye, normal vision right eye; Z3A.36 36 weeks gestation of pregnancy
CPT/HCPCS: 70450; 76819; 81001; 87088; 96374; 99285; G0378 ×3; J0696; J0780; 96360; 96361

== ENCOUNTER 2020-04-20 01:16 | Inpatient (IN) | payer BC, MEDICAID ==
[~2020-04-20] VITALS: Ht 152.4 cm; Wt 83.9 kg
[2020-04-20] MEDS ORDERED: MORPHINE SULFATE 4 MG/1ML SYG ONE ×2 (01:44→03:25)
[2020-04-20] MEDS ORDERED: ONDANSETRON HCL 4 MG/2 ML VIAL ONE (01:44)
[2020-04-20 01:52] LABS: BILIRUBIN,URINE Negative (NEGATIVE); COLOR,URINE Yellow (YELLOW); GLUCOSE, URINE (UA) Negative (NEGATIVE); KETONES,URINE Negative (NEGATIVE); LEUKOCYTE ESTERASE ,URINE Large (NEGATIVE); NITRATE,URINE Negative (NEGATIVE); OCCULT BLOOD,URINE Small (NEGATIVE); PROTEIN,URINE Negative (NEGATIVE); UROBILINOGEN,URINE 0.2 mg/dL (0.2-1.0)
[2020-04-20 01:56] LABS: APPEARANCE,URINE SLIGHTLY CLOUDY (CLEAR)
[2020-04-20 02:05] LABS: BACTERIA,URINE Few /HPF (None Seen)
[2020-04-20 02:11] LABS: BASOPHILS % (AUTO) 0.2 % (0.0-5.0); EOSINOPHILS % (AUTO) 0.8 % (0.0-8.0); HEMATOCRIT 25.8 % (36-48); LYMPHOCYTES % (AUTO) 24.8 % (21.0-51.0); MEAN CORPUSCULAR HEMOGLOBIN 26.6 pg (27.0-33.0); MEAN CORPUSCULAR HGB CONC 31.8 g/dL (32.0-36.0); MEAN CORPUSCULAR VOLUME 83.8 fL (79-99); MONOCYTES % (AUTO) 7.6 % (3.0-13.0); NEUTROPHILS % (AUTO) 65.8 % (40.0-77.0); PLATELET COUNT (AUTO) 269 K/uL (130-400); RED BLOOD CELL COUNT(AUTO) 3.08 MIL/uL (4.00-5.50); RED CELL DISTRIBUTION WIDTH 14.9 % (11.0-15.5); WHITE BLOOD COUNT (AUTO) 8.9 K/uL (4.8-10.8)
[2020-04-20 02:21] LABS: CREATININE 0.6 mg/dL (0.5-1.5); POTASSIUM 4.3 mmol/L (3.5-5.1)
[2020-04-20 02:28] LABS: ALBUMIN 2.3 g/dL (3.5-5.0); BILIRUBIN,TOTAL 0.3 mg/dL (0.2-1.0); TOTAL PROTEIN, SERUM 6.6 g/dL (6.0-8.3)
[2020-04-20 05:43] VITALS: BP 97/52
[2020-04-20] MEDS: CEFAZOLIN SODIUM 1 GM VIAL IVP SCH ×3 (05:46→22:58)
[2020-04-20] MEDS ORDERED: MORPHINE-NS 50 MG/50 ML 50 ML IV SCH ×2 (06:30→06:45)
[2020-04-20] MEDS ORDERED: TAMSULOSIN HCL 0.4 MG CAP.ER.24H PO SCH (07:45)
[2020-04-20 08:14] VITALS: BP 112/76
[2020-04-20 11:38] VITALS: BP 99/59
[2020-04-20] MEDS: LACTATED RINGERS 1000ML 1,000 ML IV SCH ×2 (14:40→19:38)
[2020-04-20 16:25] VITALS: BP 107/60
[2020-04-20 19:29] VITALS: BP 99/61
[2020-04-20 23:49] VITALS: BP 109/63
--- NOTE | 2020-04-21 00:02 | NUR ---
Patient will be place in the monitor for contraction.
--- NOTE | 2020-04-21 00:06 | NUR ---
Patient placed in the Monitor for complaints of contraction. NST started at 0006.
--- NOTE | 2020-04-21 00:10 | NUR ---
Patient claimed; Patient claimed, " I felt nauseated is it because of the contraction?. I felt it every 45 minutes. Can I have medication for nausea." Reassurance given to inform M.D. and get an order for Nausea but I need to put her on the monitor first to see if she's chel."
--- NOTE | 2020-04-21 00:20 | NUR ---
Communication: Keaton Stone RN charges inform of patient's complaints. Patient was place in the monitor and will call M.D. for her request of antinausea medication.
--- NOTE | 2020-04-21 00:41 | NUR ---
NST monitor off; Baseline heart tone 150, good acceleration, moderate variability. She has 3 contractions in 30 minutes irregular.
--- NOTE | 2020-04-21 00:42 | NUR ---
Communication; Dr. Woodson called informed that patient claimed,"she felt nauseous and wants antinausea medication." She has 3 irregular contraction on the monitor and claimed she felt it every 45 minutes. Received order to transfer patient to Labor and Delivery to monitor patient , give Zofran 4 mg IV every 8 hours PRN for nausea.
[2020-04-21] MEDS ORDERED: ONDANSETRON HCL 4 MG/2 ML VIAL IVP PRN (01:00)
[2020-04-21] MEDS: LACTATED RINGERS 1000ML 1,000 ML IV SCH ×2 (01:05→07:09)
[2020-04-21] MEDS ORDERED: ONDANSETRON HCL 4 MG/2 ML VIAL ONE (01:26)
--- NOTE | 2020-04-21 01:40 | NUR ---
Report given to Keaton Stone RN; Patient transferred to Labor & Delivery via wheelchair with IV of LR infusing well and HUMAN RESOURCES REPRESENTATIVE Morphine.
[2020-04-21] MEDS: CEFAZOLIN SODIUM 1 GM VIAL IVP SCH ×5 (05:37→21:27)
[2020-04-21] MEDS ORDERED: EPHEDRINE SULFATE 50 MG/ML AMPULE IVP PRN (08:15)
[2020-04-21] MEDS ORDERED: OXYTOCIN 10 USP UNITS/ML 20 UNIT in LACTATED RINGERS 1000ML 1,000 ML IV SCH (08:15)
[2020-04-21] MEDS ORDERED: LACTATED RINGERS 500 ML 500 ML IV PRN (08:15)
[2020-04-21] MEDS ORDERED: ROPIVACAINE 0.2% 100ML VIAL 100 ML EP SCH (08:15)
[2020-04-21] MEDS ORDERED: NALOXONE HCL 0.4 MG/1 ML ML IV PRN (08:15)
[2020-04-21] MEDS ORDERED: OXYTOCIN-LR 20 UNITS/1000 ML 1,000 ML IV SCH (08:30)
[2020-04-21] MEDS: TAMSULOSIN HCL 0.4 MG CAP.ER.24H PO SCH (09:00)
[2020-04-21] MEDS ORDERED: FENTANYL CITRATE PF 50 MCG/1 ML 2ML VIAL ONE (12:30)
[2020-04-21] MEDS ORDERED: WITCH HAZEL 1 PAD TP PRN (15:30)
[2020-04-21] MEDS ORDERED: BENZOCAINE/LANOLIN/ALOE VERA 60 ML AEROSOL TP PRN (15:30)
[2020-04-21] MEDS ORDERED: ACETAMINOPHEN-CODEINE 300/30MG TAB PO PRN (15:30)
[2020-04-21] MEDS ORDERED: DIPH,PERTUSS(ACELL),TET VAC/PF 0.5 ML VIAL IM PRN (15:30)
[2020-04-21] MEDS ORDERED: MEASLES/MUMPS/RUBELLA VACCINE, LIVE 0.5 ML/VIAL SQ PRN (15:30)
[2020-04-21] MEDS ORDERED: LANOLIN 30GM OINTMENT TP PRN (15:30)
[2020-04-21] MEDS: OXYTOCIN-LR 20 UNITS/1000 ML 1,000 ML IV SCH ×2 (16:25→21:31)
[2020-04-21] MEDS: IBUPROFEN 600 MG TABLET PO PRN ×2 (16:25→23:48)
[2020-04-21 17:52] VITALS: BP 109/57
[2020-04-21 18:43] VITALS: BP 111/73
[2020-04-21] MEDS: ACETAMINOPHEN 325 MG TAB PO PRN (18:52)
[2020-04-21] MEDS: DOCUSATE SODIUM 100 MG CAP PO SCH (20:58)
[2020-04-21 23:36] VITALS: BP 104/54
[2020-04-22] MEDS: LACTATED RINGERS 1000ML 1,000 ML IV SCH ×2 (00:18→00:21)
[2020-04-22] MEDS: CEFAZOLIN SODIUM 1 GM VIAL IVP SCH (00:20)
[2020-04-22 03:19] VITALS: BP 97/57
[2020-04-22 07:30] VITALS: BP 98/67
[2020-04-22] MEDS: IBUPROFEN 600 MG TABLET PO PRN ×2 (07:38→14:15)
[2020-04-22] MEDS: TAMSULOSIN HCL 0.4 MG CAP.ER.24H PO SCH (08:30)
[2020-04-22] MEDS: DOCUSATE SODIUM 100 MG CAP PO SCH (08:30)
--- NOTE | 2020-04-22 10:44 | NUR ---
cm note met with patient and states resides at home with her 1 yr 9 month child, and states that she has plans for her mother rubi lacy to come and stay with her while on maternity leave from work, states also her sister will be coming to assist as well. father of baby is currently not involved in care, states he works out of town. 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 was started on an antidepressant for about a month, and then got , did start care early in this about 7 1/2 weeks , and then her medications were stopped due to pregancy. pt denies any current signs of depression, feels happy and does not feel any depression at this time. states her mother and her sister will be helping her after discharge from hospital. discussed resources for depression available,verbalizes understanding. pt states she is aware to notify her ob-job placement officer md of any signs of depression, and also can go back to see her md at [facility]. states no dc needs at present, dc plan is back home with baby and family to assist her in care.
[2020-04-22 11:15] VITALS: BP 103/62
[2020-04-22] MEDS: ACETAMINOPHEN 325 MG TAB PO PRN (12:01)
--- NOTE | 2020-04-22 14:55 | NUR ---
verbal and written discharge instructions given. no prescription given. informed that tylenol and ibuprofen are over the counter medications. informed to call the MD office for make a follow up appointment. informed to call the doctor for future concerns. pt voiced understanding to all things discussed. Addendum: 04/22/20 at 1510 by ARLETH BENTLEY RN Amended: Links added.
[2020-04-22 15:10] VITALS: BP 109/65
--- NOTE | 2020-04-22 15:55 | NUR ---
pt is dismissed in stable condition, brought to private car via wheelchair. Addendum: 04/22/20 at 1601 by ARLETH BENTLEY RN Amended: Links added.
== END 2020-04-22 15:55 | disposition home or self-care (01) | DRG 807 ==
LOC: EDH 01:16 → OBSVTOIN 03:36 → EDHIP 03:36 → LDH 03:59 → WSH 08:37 → LDH 04-21 01:43 → WSH 04-21 17:33
PROC: 10E0XZZ Delivery of Products of Conception, External Approach (ICD-10-PCS; principal; 2020-04-21)
PROC: 10907ZC Drainage of Amniotic Fluid, Therapeutic from Products of Conception, Via Natural or Artificial Opening (ICD-10-PCS; 2020-04-21)
PROC: 00HU33Z Insertion of Infusion Device into Spinal Canal, Percutaneous Approach (ICD-10-PCS; 2020-04-21)
PROC: 3E0R3BZ Introduction of Anesthetic Agent into Spinal Canal, Percutaneous Approach (ICD-10-PCS; 2020-04-21)
PROC: 3E0234Z Introduction of Serum, Toxoid and Vaccine into Muscle, Percutaneous Approach (ICD-10-PCS; 2020-04-22)
DX: O69.81X0 Labor and delivery complicated by cord around neck, without compression, not applicable or unspecified (principal); Z37.0 Single live birth; O99.02 Anemia complicating childbirth; N20.0 Calculus of kidney; Z23 Encounter for immunization; Z3A.39 39 weeks gestation of pregnancy
CPT/HCPCS: 36415; 59025; 76770; 80053; 81001; 85025; 87088; 90715; 96360; 96361; A4314; G0378; J0690; J2270; J2405; J2590; J2795; J3010; J7030; J7120

== ENCOUNTER → 2020-05-19 | Outpatient (CLI) | payer BC, MEDICAID | END | disposition home or self-care (01) | LOC: RAH 13:07 | PROVIDERS: ATTEND Urology | DX: R16.0 Hepatomegaly, not elsewhere classified (principal); K42.9 Umbilical hernia without obstruction or gangrene; N20.0 Calculus of kidney; N13.30 Unspecified hydronephrosis | CPT/HCPCS: 74176 ==